=== PATIENT | female | born 1955 | race Two or more races ===

== ENCOUNTER 2020-06-22 13:01 | Outpatient (CLI) | payer OTHER ==
[~2020-06-22 13:01] MED LIST: WELLBUTRIN XL300 MG PO
[2020-06-23] MEDS ORDERED: OMEPRAZOLE MAGN20 MG PO (10:38)
[2020-06-23] MEDS ORDERED: SYNTHROID50 MCG PO (10:38)
[2020-06-23] MEDS ORDERED: FENOFIBR PO (10:39)
[2020-06-23] MEDS ORDERED: ATORVASTATIN CA40 MG PO (10:39)
[2020-06-23] MEDS ORDERED: GLYPIZIDE PO (10:40)
[2020-06-23] MEDS ORDERED: GABAPENT PO (10:41)
[2020-06-23] MEDS ORDERED: PLAVIX75 MG PO (10:41)
[2020-06-23] MEDS ORDERED: CIMBALTA PO (10:42)
[2020-06-23] MEDS ORDERED: DOXE PO (10:43)
[2020-06-23] MEDS ORDERED: JANUMET XR 50-1 EAC1 PO (10:43)
[2020-06-23] MEDS ORDERED: LANTUS (10:44)
== END 2020-06-22 13:08 | disposition home or self-care (01) ==
LOC: RAD 13:01
PROVIDERS: ATTEND Orthopaedic Surgery Hand Surgery
DX: Z01.811 Encounter for preprocedural respiratory examination (principal)

== ENCOUNTER 2020-07-14 08:36 | Day surgery (SDC) | payer OTHER ==
[~2020-07-14 08:36] MED LIST changes: +ATORVASTATIN CA40 MG PO; +CIMBALTA PO; +DOXE PO; +FENOFIBR PO; +GABAPENT PO; +GLYPIZIDE PO; +JANUMET XR 50-1 EAC1 PO; +LANTUS; +OMEPRAZOLE MAGN20 MG PO; +PLAVIX75 MG PO; +SYNTHROID50 MCG PO
== END 2020-07-14 14:45 | disposition home or self-care (01) ==
LOC: CIR.AMB 08:36
PROVIDERS: ATTEND Orthopaedic Surgery Hand Surgery
DX: G56.01 Carpal tunnel syndrome, right upper limb (principal); Z20.828 Contact with and (suspected) exposure to other viral communicable diseases

== ENCOUNTER 2023-10-31 06:34 | Day surgery (SDC) | payer OTHER ==
[2023-10-11 08:33] LABS: PH,URINE 5.5 (5.0-8.0); URINE APPEARANCE Clear; URINE BILIRRUBIN Negative (NEGATIVE); URINE BLOOD Negative; URINE COLOR Yellow; URINE LEUKOCYTE Trace; URINE NITRATE Negative; URINE PROTEIN Negative (NEGATIVE); URINE UROBILINOGEN 0.2 E.U./dl
[2023-10-11 08:37] LABS: URINE BACTERIA 171.3 uL (0.0-1933); URINE EPITHELIAL CELLS 12.3 uL (0.0-38.8); URINE RBC 3.3 uL (0.0-20.8); URINE WBC 59.4 uL (0.0-23.2)
[2023-10-11 08:49] LABS: URINE GLUCOSE >=1000 MG/DL (NEGATIVE)
[2023-10-11 08:50] LABS: HEMATOCRIT 31.2 % (36.0-45.00); MEAN CORPUSCULAR HGB CONC 29.3 g/dl (32.0-36.0); PLATELET COUNT 462 K/uL (150-450); RED BLOOD COUNT 5.33 M/uL (4.00-6.00)
[2023-10-11 08:54] LABS: HEMOGLOBIN 9.1 g/dL (12.0-15.00); MEAN CELL VOLUME 58.5 fL (80.00-100.00); RED CELL DISTRIBUTION WIDTH 20.3 % (11.5-14.5)
[2023-10-11 08:59] LABS: ALBUMIN 4.2 gm/dL (3.4-5.0); BILIRUBIN TOTAL 0.27 mg/dL (0.3-1.2); CALCIUM 9.7 mg/dL (8.5-10.1); CREATININE SERUM 0.54 mg/dL (0.55-1.02); GFR 113.3; GLOBULINA 4.1 G/DL (2.4-3.5); POTASSIUM 4.43 mEq/L (3.5-5.1); TOTAL PROTEIN 8.3 gm/dL (6.4-8.2)
[2023-10-11 09:09] LABS: INR 0.98; PARTIAL THROMBOPLASTIN TIME 25.8 SECONDS (22.0-34.0); PROTHROMBIN TIME 10.3 SECONDS (9.0-11.5)
== END 2023-10-31 16:15 | disposition home or self-care (01) ==
LOC: CIR.AMB 06:34
PROVIDERS: ATTEND Orthopaedic Surgery Hand Surgery
DX: G56.02 Carpal tunnel syndrome, left upper limb (principal); Z20.822 Contact with and (suspected) exposure to COVID-19; E11.9 Type 2 diabetes mellitus without complications; E03.9 Hypothyroidism, unspecified; Z88.1 Allergy status to other antibiotic agents

== ENCOUNTER 2024-06-13 09:46 | Outpatient (CLI) | payer OTHER ==
[2024-06-13 11:05] LABS: HEMATOCRIT 37.6 % (36.0-45.00); HEMOGLOBIN 12.3 g/dL (12.0-15.00); MEAN CELL VOLUME 77.5 fL (80.00-100.00); MEAN CORPUSCULAR HEMOGLOBIN 25.4 pg (27.00-32.0); MEAN CORPUSCULAR HGB CONC 32.8 g/dl (32.0-36.0); PLATELET COUNT 301 K/uL (150-450); RED BLOOD COUNT 4.86 M/uL (4.00-6.00); RED CELL DISTRIBUTION WIDTH 15.1 % (11.5-14.5)
[2024-06-13 11:32] LABS: ALBUMIN 3.8 gm/dL (3.4-5.0); BILIRUBIN TOTAL 0.23 mg/dL (0.3-1.2); CALCIUM 9.6 mg/dL (8.5-10.1); CREATININE SERUM 0.55 mg/dL (0.55-1.02); GFR 110.59; GLOBULINA 4.1 G/DL (2.4-3.5); POTASSIUM 4.09 mEq/L (3.5-5.1); TOTAL PROTEIN 7.9 gm/dL (6.4-8.2)
[2024-06-13 13:53] LABS: FOLIC ACID > 20.00 ng/ml (4.78-20); VITAMIN D3 25 HYDROXY 31.57 ng/ml (30-120)
[2024-06-14 08:34] LABS: MANUAL PLATELET COUNT 556
[2024-06-14 08:40] LABS: PLATELET ESTIMATE NORMAL (NORMAL)
== END 2024-06-13 09:54 | disposition home or self-care (01) ==
LOC: LAB 09:46
PROVIDERS: ATTEND Internal Medicine Hematology & Oncology
DX: D50.8 Other iron deficiency anemias (principal); F31.11 Bipolar disorder, current episode manic without psychotic features, mild; L41.3 Small plaque parapsoriasis; E11.9 Type 2 diabetes mellitus without complications; E03.8 Other specified hypothyroidism; E78.2 Mixed hyperlipidemia; J45.998 Other asthma; R79.9 Abnormal finding of blood chemistry, unspecified; I10 Essential (primary) hypertension; R74.02 Elevation of levels of lactic acid dehydrogenase [LDH]; K76.89 Other specified diseases of liver; D51.8 Other vitamin B12 deficiency anemias; C50.919 Malignant neoplasm of unspecified site of unspecified female breast; R97.8 Other abnormal tumor markers

== ENCOUNTER 2024-06-27 10:07 | Outpatient (CLI) | payer OTHER ==
[2024-06-27 11:07] LABS: HEMOGLOBIN 11.6 g/dL (12.0-15.00); MEAN CORPUSCULAR HEMOGLOBIN 24.4 pg (27.00-32.0); MEAN CORPUSCULAR HGB CONC 32.1 g/dl (32.0-36.0); PLATELET COUNT 367 K/uL (150-450); RED BLOOD COUNT 4.74 M/uL (4.00-6.00); RED CELL DISTRIBUTION WIDTH 15.6 % (11.5-14.5)
[2024-06-27 12:04] LABS: ob NEGATIVE (NEGATIVE)
[2024-06-27 12:20] LABS: % SATURACION 5.5 % (15-50); ALBUMIN 3.7 gm/dL (3.4-5.0); BILIRUBIN TOTAL 0.22 mg/dL (0.3-1.2); CREATININE SERUM 0.54 mg/dL (0.55-1.02); GFR 112.95; GLOBULINA 4.3 G/DL (2.4-3.5); POTASSIUM 4.47 mEq/L (3.5-5.1)
[2024-06-27 13:16] LABS: MANUAL PLATELET COUNT 558; PLATELET ESTIMATE NORMAL (NORMAL)
== END 2024-06-27 10:08 | disposition home or self-care (01) ==
LOC: LAB 10:07
PROVIDERS: ATTEND Internal Medicine Hematology & Oncology
DX: D50.8 Other iron deficiency anemias (principal); F31.11 Bipolar disorder, current episode manic without psychotic features, mild; L41.3 Small plaque parapsoriasis; E11.9 Type 2 diabetes mellitus without complications; E03.9 Hypothyroidism, unspecified; E78.2 Mixed hyperlipidemia; J45.998 Other asthma

== ENCOUNTER 2025-07-12 08:00 | Outpatient (CLI) | payer OTHER ==
[2025-07-12 09:37] LABS: BASO % 0.6 % (0.1-1.2); EOS # 0.15 (0.04-0.54); EOS % 1.9 % (0.7-7.0); LYMPH # 2.64 (1.18-3.74); LYMPH % 32.9 % (19.3-53.1); MEAN PLATELET VOLUME 10.40 fl (9.4-12.4); MONO # 0.48 (0.24-0.82); MONO % 6.0 % (4.7-12.5); NEUT # 4.68 (1.56-6.13); NEUT % 58.4 % (34.0-71.1); RED CELL DISTRIBUTION WIDTH 15.7 % (11.6-14.4)
[2025-07-12 10:27] LABS: ALT/SGPT 107.0 U/L (12-78); AST/SGOT 45.0 U/L (15-37); BILIRUBIN TOTAL 0.33 mg/dL (0.3-1.2); BUN CREA RATIO 26.0 (7.0-25.0); CREATININE SERUM 0.61 mg/dL (0.55-1.02); FE 134.0 ug/dl (50-170); GFR 97.83; GLOBULINA 4.4 G/DL (2.4-3.5); GLUCOSE FASTING 117.0 mg/dL (65-100); LDH 185.0 U/L (84-246); OSMOLALITY SERUM 282.0 MOSM/KG (275-295)
[2025-07-14 12:39] LABS: FOLIC ACID > 20.00 ng/ml (4.78-20)
== END 2025-07-12 08:06 | disposition home or self-care (01) ==
LOC: LAB 08:00
PROVIDERS: ATTEND Internal Medicine Hematology & Oncology
DX: D50.8 Other iron deficiency anemias (principal); R79.9 Abnormal finding of blood chemistry, unspecified; I10 Essential (primary) hypertension; R74.02 Elevation of levels of lactic acid dehydrogenase [LDH]; K76.89 Other specified diseases of liver; F31.11 Bipolar disorder, current episode manic without psychotic features, mild; L41.3 Small plaque parapsoriasis; E11.9 Type 2 diabetes mellitus without complications; E03.8 Other specified hypothyroidism; E78.2 Mixed hyperlipidemia; J45.998 Other asthma

== ENCOUNTER 2025-07-16 11:06 | Outpatient (CLI) | payer OTHER | END 2025-07-16 11:10 | disposition home or self-care (01) | LOC: MRI 11:06 | PROVIDERS: ATTEND Orthopaedic Surgery | DX: M25.512 Pain in left shoulder (principal); M75.122 Complete rotator cuff tear or rupture of left shoulder, not specified as traumatic | CPT/HCPCS: 73218 ==